=== PATIENT | male | born 1970 | race Caucasian/White ===

== ENCOUNTER 2016-08-18 14:52 | Emergency (ER) | payer BC, OTHER ==
[2016-08-18 15:13] VITALS: BP 155/63; PULSE 111; TEMP 99.1; BMI 30.8
[2016-08-18] MEDS ORDERED: SODIUM CHLORIDE 1,000 ML IV STA (17:00)
[2016-08-18] MEDS ORDERED: ACETAMINOPHEN 325 MG TABLET (FP) PO ONE (17:01)
--- NOTE | 2016-08-18 17:12 | PDOC ---
History of Present Illness - General Chief Complaint: Pain Stated Complaint: ABD PAIN Time Seen by Provider: 08/18/16 16:58 History Source: Patient - History of Present Illness Timing/Duration: reports: constant Abdominal Pain Onset Location: reports: RUQ, epigastric Past History - Past Medical History Allergies/Adverse Reactions: Allergies Allergy/AdvReac Type Severity Reaction Status Date / Time No Known Drug Allergies Allergy Verified 08/18/16 15:10 Home Medications: Ambulatory Orders Gabapentin 100 mg PO PRN 03/19/14 Naproxen [Naprosyn -] 500 mg PO BID 03/19/14 Omeprazole [Prilosec (RX)] 20 mg PO DAILY 03/19/14 Zolpidem Tartrate [Ambien] 10 mg PO HS 03/19/14 Oxycodone HCl 10 mg PO QID PRN #60 tablet MDD UNKNOWN 03/26/14 Canagliflozin [Invokana] 300 mg PO DAILY 06/26/15 Diazepam 10 mg PO PRN PRN 06/26/15 Fenofibrate Nanocrystallized [Tricor] 145 mg PO DAILY 06/26/15 Metformin HCl 500 mg PO DAILY 06/26/15 Quetiapine Fumarate "Xr" [Seroquel Xr -] 100 mg PO HS 06/26/15 Tramadol HCl 50 mg PO BID 06/26/15 Famotidine [Pepcid -] 20 mg PO BID #14 tablet 08/18/16 Anemia: No Asthma: No Cancer: No Cardiac Disorders: No CVA: No COPD: No CHF: No Dementia: No Diabetes: Yes (TYPE DM X1 1 YEAR) GI Disorders: Yes (ACID REFLUX) Disorders: No HTN: No Hypercholesterolemia: Yes (RESOLVED) Liver Disease: No Suicide Attempt (Hx): No Seizures: No Thyroid Disease: Yes - Surgical History Abdominal Surgery: Yes (INGUINAL HERNIA REPAIR 10 YRS AGO) Appendectomy: No Cardiac Surgery: No Cholecystectomy: No Lung Surgery: No Neurologic Surgery: Yes (BACK SX 2006, 2013) Orthopedic Surgery: Yes (CARPAL TUNNEL - LEFT) - Psycho/Social/Smoking Cessation Hx Anxiety: Yes Suicidal Ideation: No Smoking History: Current every day smoker Have you smoked in the past 12 months: Yes Number of Cigarettes Smoked Daily: 10 Information on smoking cessation initiated: No 'Breaking Loose' booklet given: 06/26/15 Hx Alcohol Use: No Drug/Substance Use Hx: No Substance Use Type: None Hx Substance Use Treatment: No Review of Systems - Review of Systems Constitutional: Yes: Fever Respiratory: No: Cough, Shortness of Breath Cardiac (ROS): No: Chest Pain ABD/GI: Yes: Diarrhea, Nausea, Vomiting : No: Dysuria, Flank Pain, Hematuria *Physical Exam - Vital Signs Last Vital Signs Temp Pulse Resp BP Pulse Ox 99.1 F 111 H 20 155/63 98 08/18/16 15:11 08/18/16 15:11 08/18/16 15:11 08/18/16 15:11 08/18/16 15:11 - Physical Exam General Appearance: Yes: Appropriately Dressed. No: Apparent Distress HEENT: positive: Normal Voice Neck: positive: Supple Respiratory/Chest: positive: Lungs Clear, Normal Breath Sounds. negative: Respiratory Distress Cardiovascular: positive: S1, S2, Tachycardia Gastrointestinal/Abdominal: positive: Normal Bowel Sounds, Tender (to epigastrium and to a lesser extent, RUQ, neg murpheys), Soft, Guarding. negative: Distended, Rebound Musculoskeletal: negative: CVA Tenderness Extremity: positive: Normal Inspection Integumentary: positive: Dry, Warm Neurologic: positive: Fully Oriented, Alert, Normal Mood/Affect ED Treatment Course - LABORATORY CBC & Chemistry Diagram: 08/18/16 17:20 08/18/16 17:20 Medical Decision Making - Medical Decision Making 08/18/16 17:06 45 yo M, h/o HLD, NIDDM, p/w abd pain w/ n/v/d x 2 days. developed chills today. Pt reports numerous e/o non-bloody, watery diarrhea w/ 2 e/o n/v. No sick contact, recent travel or abx use. No h/o simialr sxs See exam Upper abd pain w/ n/v/d and fever Tachy w/ low grade fever and ttp to upper abd ?gastroenteritis vs acute cuate (as ttp in RUQ, neg murpheys), vs gastritis though fever not c/w this dx, less likely renal stone -pain control -IVF -labs -?US -reassess 08/18/16 17:13 *DC/Admit/Observation/Transfer Diagnosis at time of Disposition: Gastroenteritis - Discharge Dispostion Disposition: HOME - Prescriptions Prescriptions: Famotidine [Pepcid -] 20 mg PO BID #14 tablet - Referrals Referrals: Shayan Bui MD [Primary Care Provider] - - Patient Instructions Printed Discharge Instructions: Viral Gastroenteritis Additional Instructions: drink plenty of fluids. start a brat diet (BANANAS, RICE, APPLES,TOAST) take pepcid as ordered. follow up with your doctor as soon as possible. return to the ER if symptoms worsen.
[2016-08-18 18:28] LABS: ALBUMIN 4.3 g/dl (3.4-5.0); ANION GAP 12 (8-16); CALCIUM 8.7 mg/dL (8.5-10.1); CO2 23 mmol/L (21-32); COCKROFT - GAULT 120.38; GLUCOSE,RANDOM 97 mg/dL (74-106); SGOT/AST 25 U/L (15-37); SGPT/ALT 36 U/L (12-78)
[2016-08-18 18:35] LABS: ALK PHOS 90 U/L (45-117); BILIRUBIN,TOTAL 0.5 mg/dL (0.2-1.0); TOT PROT 8.4 g/dl (6.4-8.2)
[2016-08-18] MEDS ORDERED: IBUPROFEN 400 MG TABLET (FP) PO ONE ×2 (18:40→18:41)
[2016-08-18 18:52] LABS: BASOPHIL 0.5 % (0-2.0); EOSINOPHIL 1.6 % (0-4.5); MCH 21.5 pg (25.7-33.7); MCHC 30.1 g/dl (32.0-35.9); MEAN CELL VOLUME 71.5 fl (80-96); MEAN PLT VOLUME 8.3 fl (7.5-11.1); PLATELET COUNT 287 K/MM3 (134-434); RDW 20.9 % (11.9-15.9)
[2016-08-18 19:59] LABS: ANISOCYTOSIS 2+; HYPOCHROMIA 2+; MICROCYTOSIS 1+; OVALOCYTES 1+; TEAR DROP CELLS 1+
[2016-08-18] MEDS ORDERED: ONDANSETRON 4 MG/2 ML VIAL IVPUSH ONE (20:40)
[2016-08-18] MEDS ORDERED: FAMOTIDINE 20 MG/50 ML IVPB 50 ML IVPB ONE ×2 (20:40→20:43)
--- NOTE | 2016-08-18 20:41 | PDOC ---
*Physical Exam - Vital Signs Last Vital Signs Temp Pulse Resp BP Pulse Ox 99.1 F 111 H 20 155/63 98 08/18/16 15:11 08/18/16 15:11 08/18/16 15:11 08/18/16 15:11 08/18/16 15:11 - Physical Exam General Appearance: Yes: Appropriately Dressed Respiratory/Chest: positive: Normal Breath Sounds Cardiovascular: positive: Regular Rhythm, Regular Rate Gastrointestinal/Abdominal: positive: Normal Bowel Sounds (epigastric tenderness ) Extremity: positive: Normal Capillary Refill, Normal Inspection, Normal Range of Motion Integumentary: positive: Normal Color, Dry, Warm Neurologic: positive: Fully Oriented, Alert, Normal Mood/Affect ED Treatment Course - LABORATORY CBC & Chemistry Diagram: 08/18/16 17:20 08/18/16 17:20 - ADDITIONAL ORDERS Additional order review: Laboratory Results 08/18/16 17:20 Sodium 138 Potassium 3.9 Chloride 103 Carbon Dioxide 23 Anion Gap 12 BUN 16 Creatinine 1.0 Creat Clearance w eGFR > 60 Random Glucose 97 D Calcium 8.7 Total Bilirubin 0.5 D AST 25 D ALT 36 Alkaline Phosphatase 90 Total Protein 8.4 H Albumin 4.3 D Lipase 269 08/18/16 17:20 RBC 6.80 H D MCV 71.5 L MCHC 30.1 L RDW 20.9 H D MPV 8.3 Neutrophils % 84.0 H D Lymphocytes % 6.7 L D Monocytes % 7.2 Eosinophils % 1.6 Basophils % 0.5 - Medications Given in the ED: ED Medications Discontinued Medications Generic Name Dose Route Start Last Admin Trade Name Freq PRN Reason Stop Dose Admin Acetaminophen 650 mg 08/18/16 17:01 08/18/16 18:12 Tylenol - PO 08/18/16 17:02 Not Given ONCE ONE Sodium Chloride 1,000 mls @ 1,000 mls/hr 08/18/16 17:00 08/18/16 17:10 Normal Saline - IV 08/18/16 17:59 1,000 mls/hr ASDIR STA Administration Ibuprofen 800 mg 08/18/16 18:40 08/18/16 18:44 Motrin - PO 08/18/16 18:41 800 mg ONCE ONE Administration Medical Decision Making - Medical Decision Making 08/18/162029 US: fatty liver. LFTS WNL. patient with epigastric pain. likely gastritis, will give pepcid and zofran and reevaluate 08/18/16 21:55 improved. will d/c home *DC/Admit/Observation/Transfer Diagnosis at time of Disposition: Gastroenteritis - Discharge Dispostion Disposition: HOME - Prescriptions Prescriptions: Famotidine [Pepcid -] 20 mg PO BID #14 tablet - Referrals Referrals: Shayan Bui MD [Primary Care Provider] - - Patient Instructions Printed Discharge Instructions: Viral Gastroenteritis Additional Instructions: drink plenty of fluids. start a brat diet (BANANAS, RICE, APPLES,TOAST) take pepcid as ordered. follow up with your doctor as soon as possible. return to the ER if symptoms worsen.
[2016-08-18] MEDS ORDERED: ONDANSETRON 4 MG/2 ML VIAL ONE (20:42)
[2016-08-18 21:27] LABS: URINE APPEARANCE CLEAR; URINE BILIRUBIN NEGATIVE (NEGATIVE); URINE BLOOD NEGATIVE (NEGATIVE); URINE COLOR YELLOW; URINE GLUCOSE (UA) 3+ (NEGATIVE); URINE KETONE TRACE (NEGATIVE); URINE LEUK ESTERASE NEGATIVE (NEGATIVE); URINE NITRITE NEGATIVE (NEGATIVE); URINE PROTEIN NEGATIVE (NEGATIVE); URINE UROBILINOGEN NEGATIVE E.U./dl (0.2-1.0)
== END 2016-08-18 22:39 | disposition home or self-care (01) ==
LOC: JER 14:52
PROC: 3E0337Z Introduction of Electrolytic and Water Balance Substance into Peripheral Vein, Percutaneous Approach (ICD-10-PCS; principal; 2016-08-18)
PROC: 3E033GC Introduction of Other Therapeutic Substance into Peripheral Vein, Percutaneous Approach (ICD-10-PCS; 2016-08-18)
DX: K52.9 Noninfective gastroenteritis and colitis, unspecified (principal)
CPT/HCPCS: 36415; 76705-TC; 80053; 81003; 83690; 85025; 99282-25

== ENCOUNTER 2024-11-23 14:02 | Emergency (ER) | payer BC ==
[2024-11-23 14:37] VITALS: BP 125/93; PULSE 103; RESP 19; TEMP 97.7; BMI 31.8
[2024-11-23 14:55] LABS: ABSOLUTE IMMATURE GRANULOCYTES 0.01 x10^3/uL (0.0-0.031); BASOPHILS # 0.05 x10^3/uL (0.01-0.08); EOSINOPHIL % 3.6 % (0.8-7.0); EOSINOPHILS # 0.34 x10^3/uL (0.04-0.54); MCHC 34.2 g/dl (32.3-36.5); MEAN CELL VOLUME 86.2 fl (79.0-92.2); MEAN PLT VOLUME 11.5 fl (9.4-12.4); MONOCYTE # 0.56 x10^3/uL (0.30-0.82); MONOCYTE % 5.9 % (5.3-12.2); RDW 14.1 % (12.2-16.1)
[2024-11-23] MEDS: SODIUM CHLORIDE 1,000 ML IV STA (15:03)
[2024-11-23 15:10] LABS: ALK PHOS 102.0 U/L (45-117); CO2 28.0 mmol/L (21-32); CREATININE 1.0 mg/dl (0.6-1.3); GLUCOSE,RANDOM 477.0 mg/dl (74-106); SGOT/AST 64.0 U/L (15-37); SGPT/ALT 40.0 U/L (7-52); TOT PROT 7.5 g/dl (6.4-8.2)
[2024-11-23] MEDS ORDERED: INSULIN REGULAR HUMAN 100 UNITS/ML *VIAL ONE (15:32)
[2024-11-23] MEDS: INSULIN REGULAR HUMAN 100 UNITS/ML *VIAL IVPUSH ONE (15:35)
[2024-11-23 18:05] LABS: HCV DIAGNOSTIC IN-HOUSE W/RFLX NON-REACTIVE (NONREACTIVE)
[2024-11-23 18:08] LABS: HIV INTERPRETATION NEGATIVE (NEGATIVE)
== END 2024-11-23 17:05 | disposition home or self-care (01) ==
LOC: FER 14:02
PROC: 3E033VG Introduction of Insulin into Peripheral Vein, Percutaneous Approach (ICD-10-PCS; principal; 2024-11-23)
PROC: 3E0337Z Introduction of Electrolytic and Water Balance Substance into Peripheral Vein, Percutaneous Approach (ICD-10-PCS; 2024-11-23)
DX: E10.65 Type 1 diabetes mellitus with hyperglycemia (principal); R42 Dizziness and giddiness; H53.8 Other visual disturbances
CPT/HCPCS: 36415; 80053; 81003; 82962; 85025; 86803; 87389; 99284-25